=== PATIENT | female | born 1950 | race Caucasian/White ===

== ENCOUNTER 2020-07-22 09:58 | Day surgery (SDC) | payer BC, MEDICARE ==
[~2020-07-22] VITALS: Ht 162.6 cm; Wt 83.5 kg
[~2020-07-22 09:58] MED LIST: ADVAIR INH; BACITRACIN 50,000 UNIT ONE; BUDE10.22 INH; BUPIVACAINE/EPI 0.5% 1:200K ONE; CALC-534 PO; GABA-826 PO; GABA-827 PO; IBUP-1902 PO; LACT1CAP35 PO; LANS15CA60 PO; LEVO88TA4 PO; LISI40TA PO; MELO15TA24 PO; METF500T17 PO; MONT10TA6 PO; VANCOMYCIN 1,000 MG ONE
[2020-07-22 10:34] VITALS: BP 129/82
[2020-07-22] MEDS ORDERED: LACTATED RINGERS 1,000 ML IV SCH (10:35)
[2020-07-22] MEDS ORDERED: CHLORHEXIDINE 15 ML UDC MM ONE (11:00)
[2020-07-22] MEDS ORDERED: EPINEPHRINE 1 MG/ML, 1ML ONE (11:06)
[2020-07-22] MEDS ORDERED: BUPIVACAINE/PF 0.25% ONE (11:06)
[2020-07-22] MEDS ORDERED: MIDAZOLAM 1 MG/ML, 2ML ONE (12:56)
[2020-07-22] MEDS ORDERED: FENTANYL PF 250 MCG/5ML ONE (12:56)
[2020-07-22] MEDS ORDERED: PROPOFOL 50 ML ONE (14:17)
[2020-07-22] MEDS ORDERED: CEFAZOLIN 1,000 MG ONE ×2 (14:26)
[2020-07-22] MEDS ORDERED: PROPOFOL 10 MG/ML, 20ML ONE ×2 (14:34)
[2020-07-22] MEDS ORDERED: DEXAMETHASONE 4 MG/ML, 1ML ONE ×2 (14:35)
[2020-07-22] MEDS ORDERED: ONDANSETRON 2MG/ML, 2ML ONE (14:35)
[2020-07-22] MEDS ORDERED: FENTANYL PF 100 MCG/2ML ONE ×4 (14:49→15:35)
[2020-07-22] MEDS ORDERED: methylPREDNISolone SOD SUCC 125 MG/2 ML ONE (14:51)
[2020-07-22] MEDS ORDERED: OXYcodone 5 MG/5 ML ORAL.SOL UDC ONE (15:19)
[2020-07-22] MEDS: FENTANYL PF 100 MCG/2ML IV PRN ×4 (15:23→15:40)
[2020-07-22] MEDS ORDERED: DIAZEPAM 5 MG/ML, 2ML IVPush PRN (15:30)
[2020-07-22] MEDS ORDERED: PROMETHAZINE 25 MG/ML, 1ML IVPush PRN (15:30)
[2020-07-22] MEDS ORDERED: HYDROmorphone 1 MG/ML, 1ML INJ IVPush PRN (15:30)
[2020-07-22] MEDS ORDERED: ONDANSETRON 2MG/ML, 2ML IVPush PRN (15:30)
[2020-07-22] MEDS ORDERED: MEPERIDINE/PF 25MG/0.5ML IVPush PRN (15:30)
[2020-07-22] MEDS ORDERED: OXYcodone 5 MG/5 ML ORAL.SOL UDC PO PRN (15:30)
[2020-07-22] MEDS ORDERED: ACETAMINOPHEN 325 MG TABLET PO PRN (15:30)
[2020-07-22] MEDS ORDERED: LABETALOL 5MG/ML, 20ML IV PRN (15:30)
[2020-07-22] MEDS ORDERED: hydrALAzine 20 MG/ML, 1ML IV PRN (15:30)
[2020-07-22] MEDS ORDERED: DIAZEPAM 5 MG/ML, 2ML ONE (16:01)
== END 2020-07-22 18:15 | disposition home or self-care (01) ==
LOC: OUT 09:58
PROVIDERS: ATTEND Neurological Surgery
DX: M48.061 Spinal stenosis, lumbar region without neurogenic claudication (principal); Z20.828 Contact with and (suspected) exposure to other viral communicable diseases; M71.38 Other bursal cyst, other site; J45.909 Unspecified asthma, uncomplicated; E11.9 Type 2 diabetes mellitus without complications; E03.9 Hypothyroidism, unspecified; Z98.890 Other specified postprocedural states; Z79.899 Other long term (current) drug therapy; Z91.048 Other nonmedicinal substance allergy status; Z82.49 Family history of ischemic heart disease and other diseases of the circulatory system; Z83.3 Family history of diabetes mellitus
CPT/HCPCS: 36415; 63047; 63267; 72100; 82962; 87635; J0171; J0690; J1100; J2250; J2405; J2704; J2930; J3010; J3360; J3490; J7120; J3370